=== PATIENT | female | born 1990 | race Two or more races ===

== ENCOUNTER 2017-05-23 12:59 | Emergency (ER) | payer BC | END 2017-05-23 13:25 | disposition home or self-care (01) | LOC: ER 12:59 | DX: L03.011 Cellulitis of right finger (principal); J45.909 Unspecified asthma, uncomplicated | CPT/HCPCS: 99283 ==

== ENCOUNTER 2020-09-01 12:01 | Emergency (ER) | payer SELFPAY ==
[~2020-09-01] VITALS: Ht 152.4 cm; Wt 59.0 kg
[~2020-09-01 12:01] MED LIST: CEPH-264 PO; FAMO-63 PO; ONDA4TAB7 PO
[2020-09-01 12:19] VITALS: BP 126/73
[2020-09-01 13:52] LABS: BILIRUBIN,URINE NEGATIVE (NEG); CLARITY,URINE CLOUDY; COLOR,URINE YELLOW; NITRITE,URINE NEGATIVE (NEG); PROTEIN,URINE NEGATIVE (NEG-TRACE); UROBILINOGEN,URINE 0.2 mg/dL (0.2 mg/dL)
[2020-09-01 14:00] LABS: BACTERIA,URINE 0 /HPF (0-FEW); RBC,URINE 0 /HPF (0-2)
--- NOTE | 2020-09-01 14:33 | RAD ---
EXAM: Pelvic sonogram. HISTORY: Right adnexal pain. TECHNIQUE: Transabdominal and transvaginal sonographic imaging of the pelvis was performed. COMPARISON: None. FINDINGS: The uterus measures 7.4 x 4.8 x 3.6 cm. The endometrial stripe measures 2.7 mm in thickness . The ovaries are normal in size and demonstrate normal blood flow. There are small bilateral ovarian follicles, largest of which measures 1.2 cm on the left. There is trace free fluid in the posterior cul-de-sac. IMPRESSION: 1. Trace pelvic free fluid, within physiologic limits. 2. Unremarkable ovaries and uterus. Electronically signed by: Desiree Celaya MD (09/01/2020 2:30 PM) [id number]
--- NOTE | 2020-09-01 14:54 | ED.ADGEN ---
Past Medical History Past Medical History: No Pertinent History, Asthma Past Surgical History: Smoking Status: Never Smoker Alcohol Use: Occasionally Drug Use: None General Adult EDM: Chief Complaint: FOREIGN BODY VAGINA HPI: HPI: Patient is a 30 year old female who presents emergency department with concerns of a tampon being stuck in her vagina. Patient states her last menstrual cycle ended about 5 days ago. She states that last night she and her had intercourse and he reported that he could feel something in her vagina. Patient denies any irregular vaginal odor, vaginal discharge, dysuria, hematuria, increased urinary frequency, fever, nausea, vomiting, diarrhea, or back pain. Patient states that she has had some pelvic pain today that she describes as a cramping sensation. Review of Systems: Review of Systems: Complete ROS is negative unless otherwise noted in HPI. Allergies: Allergies: Allergies Coded Allergies Type Severity Reaction Last Updated Verified No Known Drug Allergies 05/05/15 No Physical Exam: PE: See Above Constitutional: Well developed, well nourished, no acute distress, non-toxic appearance. HENT: Normocephalic, atraumatic, bilateral external ears normal, nose normal. Eyes: PERRLA, EOMI, conjunctiva normal, no discharge. Neck: Normal range of motion, no stridor. Cardiovascular: Heart rate regular rhythm Lungs & Thorax: Respirations even and unlabored, no retractions, no respiratory distress Pelvic Exam: Abdomen: Nontender, soft External Genitalia: Normal Skin Speculum: Normal vaginal mucosa, normal cervical discharge Bimanual: No adnexal masses, TTP of left ADENEXA, right adnexal tenderness present, mild CMT Skin: Warm, dry, no erythema, no rash. Back: No tenderness, no CVA tenderness Extremities: No cyanosis, ROM intact, no edema. Neurologic: Alert and oriented X 3, no focal deficits noted. Psychologic: Affect normal, judgement normal, mood normal. Current Patient Data: Labs: Laboratory Tests Test 09/01/20 13:39 09/01/20 13:48 Urine Collection Type Unknown Urine Color Yellow Urine Clarity Cloudy Urine pH 6.0 (<5.0-8.0) Urine Specific [place] 1.025 (1.000-1.030) Urine Protein Negative mg/dL (NEG-TRACE) Urine Glucose (UA) Negative mg/dL (NEG) Urine Ketones (Stick) Trace mg/dL (NEG) Urine Blood Negative (NEG) Urine Nitrite Negative (NEG) Urine Bilirubin Negative (NEG) Urine Urobilinogen Dipstick 0.2 mg/dL (0.2 mg/dL) Urine Leukocyte Esterase Negative (NEG) Urine RBC 0 /HPF (0-2) Urine WBC 1-4 /HPF (0-4) Urine Squamous Epithelial Cells Mod /LPF Urine Bacteria 0 /HPF (0-FEW) Urine Mucus Marked /LPF POC Urine HCG, Qualitative Hcg negative (Negative) Microbiology 09/01/20 Wet Prep - Final, Complete Vital Signs: Vital Signs Date Time Temp Pulse Resp B/P (MAP) Pulse Ox O2 Delivery O2 Flow Rate FiO2 09/01/20 12:19 98.7 72 12 126/73 (90) 98 Room Air 98.7 EKG: EKG: [] Heart Score: C/O Chest Pain: No Radiology/Procedures: Radiology/Procedures: PROCEDURE: PELVIS W/TV EXAM: Pelvic sonogram. HISTORY: Right adnexal pain. TECHNIQUE: Transabdominal and transvaginal sonographic imaging of the pelvis was performed. COMPARISON: None. FINDINGS: The uterus measures 7.4 x 4.8 x 3.6 cm. The endometrial stripe measures 2.7 mm in thickness. The ovaries are normal in size and demonstrate normal blood flow. There are small bilateral ovarian follicles, largest of which measures 1.2 cm on the left. There is trace free fluid in the posterior cul-de-sac. IMPRESSION: 1. Trace pelvic free fluid, within physiologic limits. 2. Unremarkable ovaries and uterus. Electronically signed by: Desiree Celaya MD (09/01/2020 2:30 PM) [id number] [] Course & Med Decision Making: Course & Med Decision Making Pertinent Labs and Imaging studies reviewed. (See chart for details) [] Dragon Disclaimer: Dragon Disclaimer: This electronic medical record was generated, in whole or in part, using a voice recognition dictation system. Departure Departure Impression: Primary Impression: Pelvic pain Additional Impression: Person with feared complaint, no diagnosis made Disposition: HOME / SELF CARE / HOMELESS Condition: STABLE Referrals: NO PCP (PCP) MARGOT LOWERY MD Patient Instructions: Pelvic Pain, Female, [id number] Additional Instructions: Tylenol or ibuprofen as needed for pain. Follow-up with Dr. Lowery or your [employer] this week, return to the ER if symptoms worsen. Problem Qualifiers DONA BLACKMON [employer] Sep 01, 2020 14:54
[2020-09-03 00:09] LABS: GC PROBE Negative (Negative)
== END 2020-09-01 15:07 | disposition home or self-care (01) ==
LOC: ER 12:01
DX: R10.2 Pelvic and perineal pain (principal); Z71.1 Person with feared health complaint in whom no diagnosis is made; J45.909 Unspecified asthma, uncomplicated; Z98.890 Other specified postprocedural states
CPT/HCPCS: 76830; 76856; 81001; 81025; 87491; 87591; 99284; Q0111